=== PATIENT | female | born 1940 | race Caucasian/White ===

== ENCOUNTER → 2017-03-16 | Outpatient (CLI) | payer MEDICARE, OTHER ==
[~2017-03-16] MED LIST: DARVOCET N 1001 TAB PO; FLEXERIL10 MG PO; FLUTICASON0.05 MG/AC NS; GLUCOSAMINE & C1 CA2 PO; HYDROCHLOROTH12.5 MG PO; MEDROL DOSEPAK4 MG PO; NEXIUM40 MG PO; SKELAXIN800 MG PO; TARKA PO; TRAMADOL HCL50 MG PO; VICODIN 500 MG-1 TAB PO
[2017-03-16 13:23] LABS: BASO # 0.1 10*3/uL (0.0-0.1); BASO % 0.9 % (0.0-1.0); EOS # 0.1 10*3/uL (0.0-0.4); EOS % 0.6 % (1.0-4.0); HEMOGLOBIN 13.5 g/dl (12.0-16.0); LYMPH # 1.7 10*3/uL (1.3-4.4); LYMPH % 21.8 % (27.0-41.0); MEAN CORPUSCULAR HGB 29.3 pg (27.0-31.0); MEAN CORPUSCULAR HGB CONC 33.8 g/dl (33.0-37.0); MEAN PLATELET VOLUME 8.8 fl (9.6-12.3); MONO # 0.6 10*3/uL (0.1-1.0); MONO % 7.9 % (3.0-9.0); NEUT # 5.5 10*3/uL (2.3-7.9); NEUT % 68.4 % (47.0-73.0); PLATELET COUNT AUTOMATED 381 10*3/uL (130-400); RED CELL DISTRI WIDTH 13.5 % (0-14.5)
[2017-03-16 13:50] LABS: BUN 14 mg/dl (7-24); CARBON DIOXIDE 35 mmol/L (21-32); CHLORIDE 99 mmol/L (98-107); CHOLESTEROL 215 mg/dL (<200); EST GLOM FILT AFRICAN AMERICAN > 60 ml/min; GLUCOSE 102 mg/dL (65-99); HDL CHOLESTEROL 70 mg/dl (40-60); LDL CHOLESTEROL 130 mg/dL (9-159); POTASSIUM 3.3 mmol/L (3.5-5.1); SGOT/AST 19 IU/L (3-35); SGPT/ALT 17 U/L (12-78); SODIUM 138 mmol/L (136-145); TRIGLYCERIDES 75 mg/dl (<150); VLDL CHOLESTEROL 15 mg/dL (6-40)
== END | disposition home or self-care (01) ==
LOC: LAB 11:54 → US 12:30
PROVIDERS: Internal Medicine Cardiovascular Disease
DX: I65.23 Occlusion and stenosis of bilateral carotid arteries (principal); I10 Essential (primary) hypertension; R42 Dizziness and giddiness; R53.83 Other fatigue

== ENCOUNTER → 2017-04-01 | Outpatient (CLI) | payer MEDICARE, OTHER ==
[2017-04-01 12:22] LABS: BUN 12 mg/dl (7-24); CARBON DIOXIDE 28 mmol/L (21-32); CHLORIDE 98 mmol/L (98-107); EST GLOM FILT AFRICAN AMERICAN > 60 ml/min; GLUCOSE 96 mg/dL (65-99); POTASSIUM 3.6 mmol/L (3.5-5.1); SODIUM 138 mmol/L (136-145)
== END | disposition home or self-care (01) ==
LOC: LAB 11:11
PROVIDERS: Internal Medicine Cardiovascular Disease
DX: E87.6 Hypokalemia (principal); I10 Essential (primary) hypertension

== ENCOUNTER → 2017-05-20 | Outpatient (CLI) | payer MEDICARE, OTHER ==
[2017-05-20 13:39] LABS: BUN 19 mg/dl (7-24); CARBON DIOXIDE 33 mmol/L (21-32); CHLORIDE 96 mmol/L (98-107); EST GLOM FILT AFRICAN AMERICAN > 60 ml/min; GLUCOSE 109 mg/dL (65-99); POTASSIUM 2.8 mmol/L (3.5-5.1); SODIUM 136 mmol/L (136-145)
== END | disposition home or self-care (01) ==
LOC: LAB 12:45
PROVIDERS: Internal Medicine Cardiovascular Disease
DX: I10 Essential (primary) hypertension (principal)

== ENCOUNTER → 2017-06-17 | Outpatient (CLI) | payer MEDICARE, OTHER ==
[2017-06-17 09:54] LABS: BUN 16 mg/dl (7-24); CHLORIDE 98 mmol/L (98-107); CREATININE 0.68 mg/dL (0.55-1.02); SODIUM 137 mmol/L (136-145)
== END | disposition home or self-care (01) ==
LOC: LAB 09:30
PROVIDERS: Internal Medicine Cardiovascular Disease
DX: I10 Essential (primary) hypertension (principal)

== ENCOUNTER → 2017-07-15 | Outpatient (CLI) | payer MEDICARE, OTHER ==
[2017-07-15 13:03] LABS: BUN 8 mg/dl (7-24); CHLORIDE 102 mmol/L (98-107); CREATININE 0.62 mg/dL (0.55-1.02); POTASSIUM 3.9 mmol/L (3.5-5.1); SODIUM 138 mmol/L (136-145)
== END | disposition home or self-care (01) ==
LOC: LAB 11:50
PROVIDERS: Internal Medicine Cardiovascular Disease
DX: I25.10 Atherosclerotic heart disease of native coronary artery without angina pectoris (principal); I10 Essential (primary) hypertension

== ENCOUNTER → 2018-07-01 | Day surgery (SDC) | payer MEDICARE, OTHER ==
[~2018-07-01] MED LIST changes: +ASPIRIN ADULT L81 M1 PO; +CIPRO500 MG PO; +COMBIVENT RESPIM4 GM INH; +FLONASE ALLERG9.9 ML NAS; +K-TAB20 MEQ PO; +LASIX40 MG PO; +METOPROLOL SUCC50 M1 PO; +PLAVIX75 M1 PO; +PRAVACHOL40 MG PO; +PREDNISONE5 MG PO; +VERAPAMIL HCL240 M2 PO; +XANAX0.5 MG PO
--- NOTE | ~2018-07-01 | PROC NOTE ---
[place], [place] PROCEDURE NOTE NAME: [facility] [id number] UNIT #: [id number] ROOM: DOCTOR: SHANTAL GROVE MD,INDERJIT BIRTHDATE: [birth year] DOS: 07/01/2018 Left-Sided Ultrasound Guided Thoracentesis Outpatient Note PREOPERATIVE DIAGNOSIS: Recurrent left pleural effusion. POSTOPERATIVE DIAGNOSES: Successful removal of 350 mL of pleural fluid from the left pleural space without any complications. ANESTHESIA: The local anesthetic was used was lidocaine. PROCEDURE DESCRIPTION: Informed consent obtained for the patient. The patient was brought to the outpatient Surgery Department, placed in sitting position. The ultrasound of the chest was personally performed the left side of the chest. Fluid side, thoracentesis was marked. After that, skin was cleaned with chlorhexidine solution. A 1% lidocaine was administered in the skin and intercostal space during the administration of local anesthetic, the left pleural space was entered. After that small incision given in the skin, [place] thoracentesis catheter introduced through the incision into the left pleural space without any difficulty. A total of 350 mL of pleural fluid was noted, which were yellowish in color. The pleural fluid sent for only cytology and acid fast smear and cultures. Procedure well tolerated by the patient without difficulty. Chest x-ray done post-procedure shows small remaining pleural fluid area of atelectasis left lower lobe. Otherwise, the lung were noted well expansion in the upper portion of the left lung. INDERJIT MURGUIA MD CM:PROCNOTE:PROCEDURE NOTE [id number] INDERJIT GROVE MD
[2018-07-01 08:31] VITALS: BP 105/65
[2018-07-01 09:34] VITALS: BP 107/58
[2018-07-02 13:06] LABS: ACID FAST SPEC PROCESSING Direct Inoculation (.)
[2018-08-12 08:11] LABS: ACID FAST CULTURE Negative (.)
== END | disposition home or self-care (01) ==
LOC: SDC 06-30 09:30
PROVIDERS: Internal Medicine Critical Care Medicine
DX: J90 Pleural effusion, not elsewhere classified (principal); J98.11 Atelectasis; I10 Essential (primary) hypertension; K21.9 Gastro-esophageal reflux disease without esophagitis; K58.9 Irritable bowel syndrome, unspecified; Z88.0 Allergy status to penicillin; Z88.2 Allergy status to sulfonamides; Z88.8 Allergy status to other drugs, medicaments and biological substances; Z91.041 Radiographic dye allergy status; Z87.891 Personal history of nicotine dependence; Z90.49 Acquired absence of other specified parts of digestive tract; Z90.710 Acquired absence of both cervix and uterus; Z82.49 Family history of ischemic heart disease and other diseases of the circulatory system

== ENCOUNTER → 2019-02-10 | Outpatient (CLI) | payer MEDICARE, OTHER ==
[2019-02-10 08:39] LABS: CREATININE 0.89 mg/dL (0.55-1.02)
== END | disposition home or self-care (01) ==
LOC: CT 02-09 11:00
PROVIDERS: Radiology Diagnostic Radiology
DX: C34.32 Malignant neoplasm of lower lobe, left bronchus or lung (principal); I25.10 Atherosclerotic heart disease of native coronary artery without angina pectoris; K57.90 Diverticulosis of intestine, part unspecified, without perforation or abscess without bleeding; K44.9 Diaphragmatic hernia without obstruction or gangrene; J44.9 Chronic obstructive pulmonary disease, unspecified; K21.9 Gastro-esophageal reflux disease without esophagitis; K76.89 Other specified diseases of liver

== ENCOUNTER → 2019-11-09 | Outpatient (CLI) | payer MEDICARE, OTHER ==
[2019-11-09 12:38] LABS: BASO # 0.1 10*3/uL (0.0-0.1); BASO % 1.4 % (0.0-1.0); EOS # 0.1 10*3/uL (0.0-0.4); EOS % 0.9 % (1.0-4.0); HEMATOCRIT 40.9 % (37.0-47.0); HEMOGLOBIN 12.7 g/dl (12.0-16.0); LYMPH # 1.5 10*3/uL (1.3-4.4); LYMPH % 22.9 % (27.0-41.0); MEAN CELL VOLUME 84.2 fl (81.0-99.0); MEAN CORPUSCULAR HGB 26.1 pg (27.0-31.0); MEAN CORPUSCULAR HGB CONC 31.1 g/dl (33.0-37.0); MEAN PLATELET VOLUME 9.4 fl (9.6-12.3); MONO # 0.6 10*3/uL (0.1-1.0); MONO % 9.5 % (3.0-9.0); NEUT # 4.3 10*3/uL (2.3-7.9); PLATELET COUNT AUTOMATED 404 10*3/uL (130-400); RED BLOOD COUNT 4.86 10*6/uL (4.10-5.10); RED CELL DISTRI WIDTH 15.6 % (0-14.5); WHITE BLOOD COUNT 6.6 10*3/uL (4.8-10.8)
[2019-11-09 12:47] LABS: ALBUMIN 4.1 gm/dl (3.1-4.5); BUN 18 mg/dl (7-24); CHLORIDE 102 mmol/L (98-107); CREATININE 0.82 mg/dL (0.55-1.02); IRON 79 ug/dL (50-170); POTASSIUM 3.1 mmol/L (3.5-5.1); SGOT/AST 13 IU/L (3-35); SGPT/ALT 17 U/L (12-78); SODIUM 135 mmol/L (136-145)
[2019-11-09 12:50] LABS: ALKALINE PHOSPHATASE 100 U/L (45-117); TOTAL IRON BINDING CAPACITY 418 ug/dl (250-450)
[2019-11-09 13:23] LABS: FERRITIN 21.7 ng/mL (10.0-291.0)
== END | disposition home or self-care (01) ==
LOC: LAB 11:41
PROVIDERS: Internal Medicine Hematology & Oncology
DX: C34.90 Malignant neoplasm of unspecified part of unspecified bronchus or lung (principal); J44.9 Chronic obstructive pulmonary disease, unspecified; I25.10 Atherosclerotic heart disease of native coronary artery without angina pectoris; C34.32 Malignant neoplasm of lower lobe, left bronchus or lung; D50.9 Iron deficiency anemia, unspecified

== ENCOUNTER → 2019-11-27 | Outpatient (CLI) | payer MEDICARE, OTHER | END | disposition home or self-care (01) | LOC: CT 10:04 | DX: C34.32 Malignant neoplasm of lower lobe, left bronchus or lung (principal); C34.90 Malignant neoplasm of unspecified part of unspecified bronchus or lung; J44.9 Chronic obstructive pulmonary disease, unspecified; D50.9 Iron deficiency anemia, unspecified; I25.10 Atherosclerotic heart disease of native coronary artery without angina pectoris; I70.0 Atherosclerosis of aorta; N64.89 Other specified disorders of breast; N28.1 Cyst of kidney, acquired; K57.30 Diverticulosis of large intestine without perforation or abscess without bleeding; M43.8X4 Other specified deforming dorsopathies, thoracic region; M81.0 Age-related osteoporosis without current pathological fracture; N94.89 Other specified conditions associated with female genital organs and menstrual cycle; J43.9 Emphysema, unspecified; Z90.49 Acquired absence of other specified parts of digestive tract; Z90.2 Acquired absence of lung [part of] ==

== ENCOUNTER → 2021-02-18 | Outpatient (CLI) | payer MEDICARE, OTHER | END | disposition home or self-care (01) | LOC: RAD 10:46 | PROVIDERS: ATTEND Internal Medicine | DX: M40.294 Other kyphosis, thoracic region (principal); M47.814 Spondylosis without myelopathy or radiculopathy, thoracic region ==

== ENCOUNTER → 2021-04-03 | Outpatient (CLI) | payer MEDICARE, OTHER ==
[~2021-04-03] VITALS: Ht 149.8 cm; Wt 49.9 kg
[~2021-04-03] MED LIST changes: +HYDROCHLOROTH12.5 M2 PO; +REGLAN5 MG PO
[2021-04-03 08:00] VITALS: BP 114/53
[2021-04-03 09:35] VITALS: BP 149/84
[2021-04-03 09:50] VITALS: BP 123/61
[2021-04-03 10:05] VITALS: BP 114/63
[2021-04-03 10:20] VITALS: BP 108/62
[2021-04-03 10:35] VITALS: BP 110/64
[2021-04-04 13:06] LABS: ACID FAST SPEC PROCESSING Concentration (.)
== END | disposition home or self-care (01) ==
LOC: SDC 03-31 09:30 → EDSTATUS 09:30 → SDC 09:30 → LAB 12:00
PROVIDERS: ATTEND Internal Medicine Critical Care Medicine
DX: J98.11 Atelectasis (principal); K21.9 Gastro-esophageal reflux disease without esophagitis; F41.9 Anxiety disorder, unspecified; I10 Essential (primary) hypertension; E78.00 Pure hypercholesterolemia, unspecified; Z85.118 Personal history of other malignant neoplasm of bronchus and lung; Z86.73 Personal history of transient ischemic attack (TIA), and cerebral infarction without residual deficits; Z88.0 Allergy status to penicillin; Z88.2 Allergy status to sulfonamides; Z87.891 Personal history of nicotine dependence; Z79.899 Other long term (current) drug therapy; Z20.822 Contact with and (suspected) exposure to COVID-19

== ENCOUNTER → 2022-07-07 | Outpatient (CLI) | payer MEDICARE, OTHER | END | disposition home or self-care (01) | LOC: RAD 00:16 → CT 13:00 | PROVIDERS: ATTEND Internal Medicine | DX: K44.9 Diaphragmatic hernia without obstruction or gangrene (principal); R19.00 Intra-abdominal and pelvic swelling, mass and lump, unspecified site; M40.294 Other kyphosis, thoracic region; K57.32 Diverticulitis of large intestine without perforation or abscess without bleeding; M48.54XA Collapsed vertebra, not elsewhere classified, thoracic region, initial encounter for fracture ==

== ENCOUNTER → 2023-02-24 | Outpatient (CLI) | payer MEDICARE, OTHER ==
[2023-02-24 10:47] LABS: BASO # 0.1 10*3/uL (0.0-0.1); BASO % 1.3 % (0.0-1.0); EOS # 0.2 10*3/uL (0.0-0.4); EOS % 2.2 % (1.0-4.0); HEMATOCRIT 41.2 % (37.0-47.0); LYMPH # 1.3 10*3/uL (1.3-4.4); LYMPH % 19.3 % (27.0-41.0); MEAN CORPUSCULAR HGB 29.5 pg (27.0-31.0); MEAN CORPUSCULAR HGB CONC 32.8 g/dl (33.0-37.0); MEAN PLATELET VOLUME 8.9 fl (9.6-12.3); MONO # 0.6 10*3/uL (0.1-1.0); MONO % 9.3 % (3.0-9.0); NEUT # 4.6 10*3/uL (2.3-7.9); NEUT % 67.6 % (47.0-73.0); PLATELET COUNT AUTOMATED 309 10*3/uL (130-400); RED BLOOD COUNT 4.58 10*6/uL (4.10-5.10); RED CELL DISTRI WIDTH 14.5 % (0-14.5); WHITE BLOOD COUNT 6.8 10*3/uL (4.8-10.8)
[2023-02-24 11:22] LABS: ALKALINE PHOSPHATASE 102 U/L (46-116); BUN 16 mg/dl (9-23); CHLORIDE 104 mmol/L (98-107); CHOLESTEROL 150 mg/dL (<200); FREE T4 1.08 ng/dl (0.89-1.76); LDL CHOLESTEROL 68 mg/dL (9-159); POTASSIUM 3.8 mmol/L (3.4-5.1); SGPT/ALT 8 U/L (10-49); T3 UPTAKE 24.2 % (22.4-36.7); THYROID STIM HORMONE (HS) 20.946 uIU/ml (0.550-4.780); THYROXINE (T4) TOTAL 7.3 ug/dl (4.5-10.9); TOTAL PROTEIN 7.4 gm/dL (6.0-8.0); TRIGLYCERIDES 44 mg/dl (<150); VITAMIN D, 25-HYDROXY 31.4 ng/mL (30-100)
== END | disposition home or self-care (01) ==
LOC: LAB 01:10
PROVIDERS: ATTEND Internal Medicine
DX: Z13.89 Encounter for screening for other disorder (principal); I10 Essential (primary) hypertension; G89.4 Chronic pain syndrome; M15.0 Primary generalized (osteo)arthritis; K21.00 Gastro-esophageal reflux disease with esophagitis, without bleeding; M81.0 Age-related osteoporosis without current pathological fracture; J44.9 Chronic obstructive pulmonary disease, unspecified; D51.9 Vitamin B12 deficiency anemia, unspecified; D64.9 Anemia, unspecified; R62.7 Adult failure to thrive; F32.0 Major depressive disorder, single episode, mild; F41.1 Generalized anxiety disorder; Z85.3 Personal history of malignant neoplasm of breast; Z85.118 Personal history of other malignant neoplasm of bronchus and lung; Z79.891 Long term (current) use of opiate analgesic

== ENCOUNTER → 2023-06-08 | Outpatient (CLI) | payer MEDICARE, OTHER ==
[2023-06-08 15:13] LABS: FREE T4 1.62 ng/dl (0.89-1.76)
== END | disposition home or self-care (01) ==
LOC: LAB 01:44 → US 15:00 → LAB 15:00
PROVIDERS: ATTEND Internal Medicine
DX: Z13.0 Encounter for screening for diseases of the blood and blood-forming organs and certain disorders involving the immune mechanism (principal); Z13.1 Encounter for screening for diabetes mellitus; Z13.21 Encounter for screening for nutritional disorder; Z13.220 Encounter for screening for lipoid disorders; Z13.228 Encounter for screening for other metabolic disorders; Z13.29 Encounter for screening for other suspected endocrine disorder; F41.1 Generalized anxiety disorder; I10 Essential (primary) hypertension; R91.8 Other nonspecific abnormal finding of lung field; Z13.6 Encounter for screening for cardiovascular disorders; Z13.89 Encounter for screening for other disorder; Z13.9 Encounter for screening, unspecified; R07.89 Other chest pain